=== PATIENT | male | born 1980 | race Hispanic/Latino ===

== ENCOUNTER 2023-12-27 10:07 | Emergency (ER) | payer OTHER, SELFPAY ==
[2023-12-27 10:09] VITALS: BP 134/81
--- NOTE | 2023-12-27 11:04 | ED.GENMED ---
History of Present Illness
General
Chief Complaint: Abdominal Symptoms
Source: patient
Exam Limitations: none
Time Seen by Provider: 12/27/23 11:03
Nursing documentation reviewed up to this point in time: agreed with
History of Present Illness
History of Present Illness:
43-year-old male with history of HTN, HLD, IDDM, recurrent R inguinal hernia repair 03/2022, presents with one month of constant waxing and waning R groin pain with some radiation up to right lower abdomen and into right testicle. Pain is worse
laying on right side, relieved some laying on left side. Past 2 days has had chills, felt feverish and vomited twice yesterday. Tylenol gives little relief. Denies diarrhea/constipation.
Pt of [facility] and states he ran out of his Trulicity
Past History
Past History
ED Past Medical History: HTN, Hypercholesterolemia and NIDDM
ED Past Surgical History: Other (incarcerated R inguinoscrotal hernia repair 04/12, )
Social History
Tobacco: Non-smoker
Alcohol: None
Drug: None
Review of Systems
Review of Systems
Allergies reviewed?: Yes
All Other Systems: ROS reviewed and negative except as documented in HPI and ROS
Constitutional: Reports fever (felt feverish, did not take temp)
Respiratory: Denies trouble breathing
Cardiac: Denies chest pain
ABD/GI: Reports abdominal pain and vomiting (vomited twice yesterday, none today); Denies nausea, diarrhea, constipated or anorexia
: Reports dysuria and other (R testicle larger than left ); Denies frequency, flank pain, difficulty voiding or bleeding
Musculoskeletal: Reports no symptoms
Skin: Reports no symptoms
Neurological: Reports no symptoms
Phy Exam
Physical Exam
Physical Exam:
GENERAL: No acute distress. A&Ox3.
CONSTITUTIONAL: Afebrile.
EYES: clear, conjunctivae normal
ENMT: moist mucus membranes, Pharynx nl
RESPIRATORY: Regular respirations, nonlabored, lungs clear.
CARDIOVASCULAR: Regular rate and rhythm, no murmurs, no rubs.
GI: Soft, obese, mildly tender mid to RLQ, moderate tenderness to palpation of right groin, right testicle. No swelling or palpable masses, nontender, normal BS
: R testicle twice the size as left (this has been documented in PMHX and is not new), No redness. Circumcised penis with no discharge
MUSCULOSKELETAL: Moves with ease. Well perfused.
SKIN: Warm, dry, normal. mid lower abdomen under pannus has local rash consistent with candidal infection. Surrounding skin is normal.
PSYCH: Normal mood and affect. Well kept, interactive and appropriate
NEUROLOGIC: Awake, alert and oriented. No focal neurological deficits
Course
Orders/Labs/Results
Orders:
Orders
12/27/23 11:14
US Scrotum Urgent
Comment:
Reason For Exam: R testicle pain
12/27/23 11:38
CT Abd/Pel (IV only)-DH only Urgent
Comment:
Reason For Exam: R groin, testicle, abd pain. Hx incarc ing-scrotal
12/27/23 12:09
Comprehensive Metabolic Panel Urgent
Lipase Urgent
12/27/23 12:10
Complete Blood Count/With Diff Urgent
Urinalysis Reflex To Culture Urgent
Date Specimen was Collected: 12/27/23
Time Specimen was Collected: 11:41
Chlamydia/GC by PCR Urgent
AUTUMN Source: Urine
Specimen Description:
Source:: URINE
Date Specimen was Collected: 12/27/23
Time Specimen was Collected: 11:41
Abnormal Lab Results
12/27/23 12/27/23
12:09 12:10
WBC 12.0 H 10^3/uL
(4.8-10.8)
MCV 78.0 L fL
(80.0-94.0)
MCH 26.8 L pg
(27.0-31.0)
MPV 12.6 H fL
(7.4-10.4)
Abs Immat Gran (auto) 0.3 H 10^3/uL
(0-0.05)
Absolute Neuts (auto) 9.8 H 10^3/uL
(1.4-6.5)
Absolute Monos (auto) 0.7 H 10^3/uL
(0.1-0.6)
Immature Gran % 2.7 H %
(0-0.5)
Neutrophils % 81.3 H %
(42.2-75.2)
Lymphocytes % 9.7 L %
(20.5-51.1)
Carbon Dioxide 19 L mmol/L
(22-30)
Creatinine 0.5 L mg/dL
(0.7-1.3)
Glucose 310 H mg/dl
(70-99)
AST 70 H U/L
(17-59)
ALT 119 H U/L
(0-50)
Total Protein 8.5 H g/dl
(6.3-8.2)
Urine Urobilinogen 2+ A
(Neg - 1+)
Urine Glucose 3+ A
(Negative)
12/27/23 12:10
12/27/23 12:09
Vital Signs
Initial and Last Documented VS:
Initial Vital Signs
Temp Pulse Resp BP Pulse Ox
98.5 F 104 18 134/81 96
12/27/23 10:12/27/23 10:09 12/27/23 10:12/27/23 10:09 12/27/23 10:09
Last Documented Vital Signs
Temp Pulse Resp BP Pulse Ox
98.5 F 102 12 142/86 96
12/27/23 10:09 12/27/23 14:35 12/27/23 13:00 12/27/23 14:35 12/27/23 14:35
MDM/Problems Addressed
Differential Diagnosis Includes:
inguinal hernia, epididymitis, hydrocele/varicocele
MDM/Problems Addressed:
43-year-old male with history of HTN, HLD, IDDM, recurrent R inguinal hernia repair 03/2022, presents with one month of constant waxing and waning R groin pain with some radiation up to right lower abdomen and into right testicle. Pain is worse
laying on right side, relieved some laying on left side. Past 2 days has had chills, felt feverish and vomited twice yesterday. Tylenol gives little relief. Denies diarrhea/constipation.
Pt of [facility] and states he ran out of his Trulicity
Afebrile, NAD
1:00 PM:
CBC: WBC 12.0
CMP: Glucose 310, mild elevation AST/ALT otherwise unremarkable
UA: 2+ urobilinogen, 3+ glucose, otherwise negative
Scrotal ultrasound radiology report read: No acute sonographic abnormalities.
2:00 PM:
CAT scan abdomen this with IV only contrast radiology report read: IMPRESSION:
1. No acute findings within the abdomen or pelvis.
2. Prior postoperative repair of large right inguinal hernia. No recurrent hernias or inflammatory changes within the groin.
3. Hepatic steatosis.
4. Unchanged left adrenal nodule measuring 2.6 cm.
5. Additional findings above.
Plan: Diflucan for candidal lower abd pannus infection.
Rx for Trulicity sent to his pharmacy to keep his blood sugar lower until he gets new PCP (was going to [facility] but now has insurance and no PCP)
Referred to PCP hotline
*Critical Care Note
Total Time (30-74mins, 75-104mins- exclusive of procedures): Not Applicable
ED Attending Note
-
Portions of this chart may have been created with voice recognition software.� Occasional wrong word or��sound alike� substitutions may have occurred due to the inherent limitations of voice recognition software.
Discharge Plan
Departure
Patient Disposition: Home (Routine Discharge)
Date of Disposition: 12/27/23
Time of Disposition: 14:12
Patient with high blood pressure during this ER visit?: No
Condition: Fair
Discharge Problem:
Hyperglycemia due to type 2 diabetes mellitus, Right groin pain, Cait infection of flexural skin
Instructions: Groin strain, Fungal Skin Rash (DC), High Blood Sugar, Adult ED
Prescriptions:
New
Trulicity 0.75 mg/0.5 mL pen injector
0.75 mg SC QWEEK Qty: 2 0RF
fluconazole [Diflucan] 100 mg tablet
100 mg PO DAILY Qty: 3 0RF
No Action
Trulicity 0.75 mg/0.5 mL Pen Injector
0.75 mg SC WE
Janumet 50-1,000 mg Tablet
1 tab PO BID@0800,1700
oxycodone 5 mg tablet
5 - 10 mg PO Q4HPRN PRN (Reason: moderate to severe pain) Qty: 20 0RF
Referrals:
NONE,* [Family Provider] -
Activity Restrictions/Additional Instructions:
As we discussed, your workup for your groin pain (ultrasound, CT scan, blood work, urine test) shows nothing worrisome. your blood sugar is high at 310.
I sent a prescription to your pharmacy for Trulicity to use once weekly as previously directed.
Continue your Janumet as prescribed.
I also sent a prescription to your pharmacy for Diflucan to take 100 mg daily for 3 days for the yeast skin infection on your lower belly
Someone from the Primary Care Hotline will be contacting you to find a doctor.
Interventions
Interventions:
*Risk Screen - Suicide Last Done: 12/27/23 10:09
*General Assessment Last Done: 12/27/23 10:09
*Neglect/Abuse Screening Last Done: 12/27/23 10:09
ED- Fall Risk Assessment Last Done: 12/27/23 14:41
*ED COVID-19 Vaccine History Last Done: 12/27/23 12:05
*Nursing Disposition Last Done: 12/27/23 14:41
TF-Eqjalh-Nmmjokzywj Assessment Last Done: 12/27/23 12:05
Discharge Date and Time
Discharge Date/Time: 12/27/23 14:42
Print Language: [place]
[2023-12-27 12:12] VITALS: BP 118/77
[2023-12-27 12:24] LABS: Urine Albumin Trace (Neg - Trace); Urine Bilirubin Negative (Negative); Urine Character Clear (Clear); Urine Color Yellow; Urine Glucose 3+ (Negative); Urine Ketone Negative (Negative); Urine Leukocyte Negative (Negative); Urine Nitrite Negative (Negative); Urine Occult Blood Negative (Negative); Urine Specific Gravity 1.015 (<1.030); Urine Urobilinogen 2+ (Neg - 1+)
[2023-12-27 12:30] LABS: % Basophils 0.6 % (0-2); % Eosinophils 0.3 % (0-6); % Immature Granulocytes 2.7 % (0-0.5); % Lymphocytes 9.7 % (20.5-51.1); % Monocytes 5.4 % (1.7-9.3); % Neutrophils 81.3 % (42.2-75.2); Absolute Basophils 0.1 10^3/uL (0-0.2); Absolute Immature Granulocytes 0.3 10^3/uL (0-0.05); Absolute Lymphocytes 1.2 10^3/uL (1.2-3.4); Absolute Monocytes 0.7 10^3/uL (0.1-0.6); Absolute Neutrophils 9.8 10^3/uL (1.4-6.5); Hematocrit 40.4 % (39.0-52.0); Hemoglobin 13.9 g/dL (13.0-18.0); Mean Corp Hgb Conc. 34.4 g/dL (33.0-37.0); Mean Corpuscular Hgb 26.8 pg (27.0-31.0); Mean Platelet Volume 12.6 fL (7.4-10.4); Nucleated Red Blood Cells % 0 % (-); Platelet Count 189 10^3/uL (130-400); Red Blood Cell Count 5.18 10^6/uL (4.70-6.10); Red Cell Dist. Width 13.3 % (11.5-14.5)
[2023-12-27 12:48] LABS: ALT (SGPT) 119 U/L (0-50); AST (SGOT) 70 U/L (17-59); Albumin 4.1 g/dl (3.5-5.0); Alkaline Phosphatase 123 U/L (38-126); Blood Urea Nitrogen 11 mg/dl (9-20); Calcium 8.8 mg/dl (8.4-10.2); Carbon Dioxide 19 mmol/L (22-30); Chloride 101 mmol/L (98-107); Glucose 310 mg/dl (70-99); Sodium 135 mmol/L (135-145); Total Bilirubin 1.3 mg/dl (0.2-1.3); Total Protein 8.5 g/dl (6.3-8.2); eGFR > 60.00
[2023-12-27 13:00] VITALS: BP 117/85
[2023-12-27 13:20] LABS: Lipase 55 U/L (23-300)
[2023-12-27 14:31] VITALS: BP 142/86
[2023-12-27 14:35] VITALS: BP 142/86
== END 2023-12-27 14:42 | disposition home or self-care (01) ==
LOC: EMR 10:07
PROVIDERS: Registered Nurse; EMERGENCY PHYSICIAN Emergency Medicine
DX: E11.65 Type 2 diabetes mellitus with hyperglycemia (principal); R10.31 Right lower quadrant pain; B37.2 Candidiasis of skin and nail; I10 Essential (primary) hypertension; E78.00 Pure hypercholesterolemia, unspecified; Z92.3 Personal history of irradiation
CPT/HCPCS: 99284; 74177; 76870; 80053; 81003; 83690; 85025; 87491; 87591; 93976; Q9967

== ENCOUNTER 2024-03-14 23:53 | Emergency (ER) | payer OTHER, SELFPAY ==
[2024-03-15 00:01] VITALS: BP 140/86
--- NOTE | 2024-03-15 00:18 | ED.GENMED ---
History of Present Illness
General
Chief Complaint: Generalized Pain
Source: patient
Exam Limitations: none
Time Seen by Provider: 03/15/24 00:10
History of Present Illness
History of Present Illness:
43-year-old male sog-mjrdavi-bqpxcmpcg diabetic presents with onset of diffuse pain between the abdomen arms and legs starting getting worse yesterday he also notes his eyes are burning. He has been vomiting. He states he had a fever. No chest
pain. No shortness of breath. He denies any urinary symptoms. He is not sure what his blood sugars have been recently.
Past History
Past History
ED Past Medical History: HTN, Hypercholesterolemia and NIDDM
ED Past Surgical History: Other (incarcerated R inguinoscrotal hernia repair 04/12, )
Social History
Tobacco: Non-smoker
Alcohol: None
Drug: None
Phy Exam
Physical Exam
Physical Exam:
General: Well-appearing male no acute respiratory distress HEENT: Normocephalic atraumatic
Heart: Regular rate and rhythm
Lungs: Clear no wheeze
Abdomen: Soft mildly diffusely tender no guarding or rebound normal bowel sounds
Extremities: No cyanosis or edema
Skin: Warm no rash
Course
Orders/Labs/Results
Orders:
Orders
03/15/24 00:17
Electrocardiogram (*1) Urgent
Reason for Study: Abdominal Pain
EKG- Treatment ONCE
03/15/24 00:23
COVID-19 Antigen Urgent
Source: Nasal Swab
Complete Blood Count/With Diff Urgent
Comprehensive Metabolic Panel Urgent
Troponin I Urgent
Influenza A+B Rapid Molecular Urgent
AUTUMN Source: Nasal Swab
Specimen Description:
03/15/24 01:10
0.9% Sodium Chloride 1000 ml [Nss] 1,000 ml IV BOLUS
03/15/24 01:20
METFORMIN HCl [Glucophage] 500 mg PO NOW STA
Abnormal Lab Results
03/15/24
00:23
WBC 13.8 H 10^3/uL
(4.8-10.8)
MCV 77.5 L fL
(80.0-94.0)
MCH 26.3 L pg
(27.0-31.0)
MPV 12.2 H fL
(7.4-10.4)
Abs Immat Gran (auto) 0.4 H 10^3/uL
(0-0.05)
Absolute Neuts (auto) 9.5 H 10^3/uL
(1.4-6.5)
Absolute Monos (auto) 0.9 H 10^3/uL
(0.1-0.6)
Immature Gran % 3.0 H %
(0-0.5)
Lymphocytes % 19.4 L %
(20.5-51.1)
Sodium 133 L mmol/L
(135-145)
Creatinine 0.6 L mg/dL
(0.7-1.3)
Glucose 410 H mg/dl
(70-99)
ALT 66 H U/L
(0-50)
03/15/24 00:23
03/15/24 00:23
Vital Signs
Initial and Last Documented VS:
Initial Vital Signs
Temp Pulse Resp BP Pulse Ox
98.3 F 100 18 140/86 96
03/15/24 00:01 03/15/24 00:01 03/15/24 00:01 03/15/24 00:01 03/15/24 00:01
Last Documented Vital Signs
Temp Pulse Resp BP Pulse Ox
98.3 F 100 18 140/86 96
03/15/24 00:01 03/15/24 00:01 03/15/24 00:01 03/15/24 00:01 03/15/24 00:01
MDM/Problems Addressed
Differential Diagnosis Includes:
Patient notes diffuse pain eyes burning vomiting low-grade fever. Question viral illness such as the flu or COVID. These tests are pending. He is also jzy-hisvhmj-ijkmanplm diabetic. Will check labs including electrolytes and glucose.
Vital signs are stable at triage
*Critical Care Note
Total Time (30-74mins, 75-104mins- exclusive of procedures): Not Applicable
Update Note
Update Note:
Serum glucose initially 410 without a gap. Slight leukocytosis but patient is chronically with leukocytosis. No focal signs of infection abdomen exam benign. Patient hydrated and given his nighttime dose of metformin. Serum glucose improved
slightly. I suspect symptoms may be related to his hyperglycemia. He will continue his current regimen of follow-up with the doctor. No indication for admission
ED Attending Note
-
Portions of this chart may have been created with voice recognition software.� Occasional wrong word or��sound alike� substitutions may have occurred due to the inherent limitations of voice recognition software.
Discharge Plan
Departure
Patient Disposition: Home (Routine Discharge)
Date of Disposition: 03/15/24
Time of Disposition: 01:53
Patient with high blood pressure during this ER visit?: No
Discharge Problem:
Hyperglycemia
Instructions: High blood sugar in adults - ED discharge instructions
Prescriptions:
No Action
Trulicity 0.75 mg/0.5 mL Pen Injector
0.75 mg SC WE
Janumet 50-1,000 mg Tablet
1 tab PO BID@0800,1700
oxycodone 5 mg tablet
5 - 10 mg PO Q4HPRN PRN (Reason: moderate to severe pain) Qty: 20 0RF
Trulicity 0.75 mg/0.5 mL pen injector
0.75 mg SC QWEEK Qty: 2 0RF
fluconazole [Diflucan] 100 mg tablet
100 mg PO DAILY Qty: 3 0RF
Referrals:
NONE,* [Family Provider] -
Activity Restrictions/Additional Instructions:
Please continue metformin twice a day. Drink plenty of fluids. Follow-up with your doctor. Return if needed otherwise
Interventions
Interventions:
*Risk Screen - Suicide Last Done: 03/15/24 00:01
*General Assessment Last Done: 03/15/24 00:34
*Neglect/Abuse Screening Last Done: 03/15/24 00:34
Discharge Date and Time
Print Language: CITIZEN OF [place]
[2024-03-15 00:51] LABS: % Basophils 0.7 % (0-2); % Eosinophils 1.9 % (0-6); % Lymphocytes 19.4 % (20.5-51.1); % Monocytes 6.2 % (1.7-9.3); % Neutrophils 68.8 % (42.2-75.2); Absolute Basophils 0.1 10^3/uL (0-0.2); Absolute Eosinophils 0.3 10^3/uL (0-0.7); Absolute Immature Granulocytes 0.4 10^3/uL (0-0.05); Absolute Lymphocytes 2.7 10^3/uL (1.2-3.4); Absolute Monocytes 0.9 10^3/uL (0.1-0.6); Absolute Neutrophils 9.5 10^3/uL (1.4-6.5); Hematocrit 40.9 % (39.0-52.0); Hemoglobin 13.9 g/dL (13.0-18.0); Mean Corpuscular Hgb 26.3 pg (27.0-31.0); Mean Corpuscular Volume 77.5 fL (80.0-94.0); Mean Platelet Volume 12.2 fL (7.4-10.4); Nucleated Red Blood Cells % 0 % (-); Platelet Count 239 10^3/uL (130-400); Red Blood Cell Count 5.28 10^6/uL (4.70-6.10); Red Cell Dist. Width 13.3 % (11.5-14.5); White Blood Cell Count 13.8 10^3/uL (4.8-10.8)
[2024-03-15 00:56] LABS: COVID-19 Antigen Negative (Negative)
[2024-03-15 01:02] LABS: ALT (SGPT) 66 U/L (0-50); AST (SGOT) 40 U/L (17-59); Albumin 3.9 g/dl (3.5-5.0); Alkaline Phosphatase 113 U/L (38-126); Blood Urea Nitrogen 15 mg/dl (9-20); Calcium 8.9 mg/dl (8.4-10.2); Carbon Dioxide 22 mmol/L (22-30); Chloride 100 mmol/L (98-107); Glucose 410 mg/dl (70-99); Potassium 4.2 mmol/L (3.5-5.1); Sodium 133 mmol/L (135-145); Total Bilirubin 0.6 mg/dl (0.2-1.3); Total Protein 8.2 g/dl (6.3-8.2); eGFR > 60.00
[2024-03-15 01:05] LABS: Troponin I < 0.012 ng/ml
[2024-03-15 01:12] VITALS: BMI 44.5
[2024-03-15] MEDS: NSS 1000 IV (01:12)
[2024-03-15] MEDS: GLUCOPHAGE 500 MG PO (01:23)
[2024-03-15 01:54] LABS: Glucose - Point of Care 349 mg/dl (70-99)
== END 2024-03-15 02:04 | disposition home or self-care (01) ==
LOC: EMR 23:53
PROVIDERS: Physician Assistant; EMERGENCY PHYSICIAN Emergency Medicine
DX: E11.65 Type 2 diabetes mellitus with hyperglycemia (principal); I10 Essential (primary) hypertension; E78.00 Pure hypercholesterolemia, unspecified
CPT/HCPCS: 99284; 96360; 80053; 82962; 84484; 85025; 87502; 87811; 93005

== ENCOUNTER → 2024-10-20 09:31 | Outpatient (REF) | payer OTHER, SELFPAY ==
[2024-10-20 11:36] LABS: Hematocrit 43.1 % (39.0-52.0); Hemoglobin 14.1 g/dL (13.0-18.0); Mean Corp Hgb Conc. 32.7 g/dL (33.0-37.0); Mean Corpuscular Volume 80.1 fL (80.0-94.0); Nucleated Red Blood Cells % 0 % (-); Platelet Count 234 10^3/uL (130-400); Red Cell Dist. Width 13.5 % (11.5-14.5)
[2024-10-20 11:52] LABS: Glycohemoglobin (HgbA1c) 10.1 % (4.0-5.6)
[2024-10-20 11:55] LABS: Microalbumin, Random Urine 5.9 mg/dl (0.6-1.7)
[2024-10-20 12:43] LABS: ALT (SGPT) 72 U/L (0-50); AST (SGOT) 39 U/L (17-59); Albumin 4.2 g/dl (3.5-5.0); Alkaline Phosphatase 99 U/L (38-126); Blood Urea Nitrogen 14 mg/dl (9-20); Calcium 8.8 mg/dl (8.4-10.2); Carbon Dioxide 24 mmol/L (22-30); Chloride 107 mmol/L (98-107); Glucose 172 mg/dl (70-99); HDL Cholesterol 27 mg/dl; LDL Cholesterol, Calculated 147 mg/dl; Potassium 4.5 mmol/L (3.5-5.1); Sodium 138 mmol/L (135-145); Total Protein 8.7 g/dl (6.3-8.2); Very Low Density Lipoprotein 24 mg/dl (0-30); eGFR > 60.00
== END ==
LOC: CLINIC 09:31
PROVIDERS: ATTENDING PHYSICIAN Nurse Practitioner Family
DX: E11.9 Type 2 diabetes mellitus without complications (principal)
CPT/HCPCS: 36415; 80053; 80061; 82043; 83036; 85025